=== PATIENT | male | born 1995 | race Two or more races ===

== ENCOUNTER 2017-11-14 18:39 | Emergency (ER) | payer SELFPAY | END 2017-11-14 19:34 | disposition home or self-care (01) | LOC: ER 18:39 | DX: S92.901A Unspecified fracture of right foot, initial encounter for closed fracture (principal); X58.XXXA Exposure to other specified factors, initial encounter; Y93.89 Activity, other specified; Y92.89 Other specified places as the place of occurrence of the external cause; Y99.8 Other external cause status; Z88.0 Allergy status to penicillin | CPT/HCPCS: 73610; 73630; 99284 ==